=== PATIENT | female | born 1940 | race Caucasian/White ===

== ENCOUNTER 2016-06-25 13:52 | Emergency (ER) | payer MEDICARE ==
[~2016-06-25] VITALS: Ht 170.2 cm; Wt 112.2 kg
[~2016-06-25 13:52] MED LIST: B-CO1TAB5; D-10TAB2 PO; FISH100020 PO; GLIM2TAB PO; LEVA500T PO; LEVEMIR SC; LOSA50TA PO; VITA250L PO
[2016-06-25 13:56] VITALS: BP 154/70; PULSE 83; RESP 16; TEMP 98.3; O2SAT 96
[2016-06-25] MEDS ORDERED: GLIM2TAB PO (14:22)
[2016-06-25] MEDS ORDERED: LEVEMIR SQ (14:23)
[2016-06-25] MEDS ORDERED: LOSA50TA PO (14:23)
[2016-06-25] MEDS ORDERED: AMLO2.5T PO (14:24)
[2016-06-25] MEDS ORDERED: ATOR10TA15 PO (14:25)
[2016-06-25] MEDS ORDERED: ONDANSETRON HCL 4 MG/2 ML VIAL IVP ONE (14:30)
[2016-06-25] MEDS ORDERED: SODIUM CHLORIDE 0.9% FLUSH 5 ML FLUSH IVF PRN (14:30)
[2016-06-25] MEDS ORDERED: MORPHINE SULFATE 4 MG/ML INJ IV PUSH ONE (14:30)
--- NOTE | 2016-06-25 14:51 | PD ---
HPI Chief Complaint: Flank/Kidney Pain Time Seen by Provider: 14:27 Travel History International Travel<30 days: No Contact w/Intl Traveler<30days: No Traveled to known affect area: No History of Present Illness HPI 75-year-old female with history of pancreatitis, previous hysterectomy, cholecystectomy, diabetic, multiple medical issues, presents to the ER today because she has been having several days' history of left flank pain and left upper quadrant abdominal pain with nausea. She denies any vomiting, fevers, diarrhea, urinary symptoms, or any other symptoms. She states that her pain is currently an 8 out of 10 and constant, with no known exacerbating or alleviating factors. Patient states that the pain started on its own and has slowly been getting worse. Modifying Factors: None Associated Signs & Symptoms: Left flank and left upper quadrant abdominal pain Risk Factors: None PFSH Past Medical History Hx Anticoagulant Therapy: Yes (BABY ASA DAILY) Arthritis: Yes Blood Disorders: No Anxiety: Yes Depression: Yes Heart Rhythm Problems: No Cancer: No Cardiac Catheterization: No High Cholesterol: No Congestive Heart Failure: No Cerebrovascular Accident: No Diabetes: Yes Patient Takes Glucophage: No Diminished Hearing: No Endocrine: Yes GERD: No Genitourinary: No Headaches: No Hypertension: Yes Immune Disorder: No Kidney Stones: No Musculoskeletal: Yes Neurologic: No Respiratory: No Immunizations Current: No Migraines: Yes Myocardial Infarction: No Seizures: No Sleep Apnea: No Tetanus Vaccination: < 5 Years Influenza Vaccination: No PNEUMOCCOCAL Vaccine (Year): 1 ?: Not Menopausal: Yes : 3 Para: 2 Miscarriage: 1 Past Surgical History Appendectomy: Yes Cholecystectomy: Yes Coronary Artery Bypass Graft: No Gynecologic Surgery: Yes (C-SECT X 2 ) Hysterectomy: Yes Thoracic Surgery: No Tonsillectomy: Yes Other Surgery: Yes Family History Family Myocardial Infarction: Yes Social History Alcohol Use: No Tobacco Use: No Substance Use: No Allergies-Medications (Allergen,Severity, Reaction): Coded Allergies: Ampicillin (Verified Allergy, Severe, ITCHY HANDS, 06/25/16) Augmentin (Verified Allergy, Severe, SWELLING TO THROAT, 06/25/16) Molds and Smuts (Verified Allergy, Severe, BODY ACHES/CONGESTION, 06/25/16) Codeine (Verified Allergy, Mild, RASH, 06/25/16) Amoxicillin (Verified Allergy, Unknown, Itching hands, cough, 06/25/16) Uncoded Allergies: Epidural Steroid Injections (Allergy, Unknown, Causes ulcerations, 06/25/15) Reported Meds & Prescriptions Reported Meds & Active Scripts Active Reported Atorvastatin (Atorvastatin Calcium) 10 Mg Tab 10 Mg PO HS Amlodipine (Amlodipine Besylate) 2.5 Mg Tab 2.5 Mg PO DAILY Levemir Inj (Insulin Detemir) 1,000 unit/ 10 ML Vial 28 Units SQ HS Do not mix with any other Insulin. Losartan (Losartan Potassium) 50 Mg Tab 50 Mg PO DAILY Glimepiride 2 Mg Tab 2 Mg PO DAILY Take with breakfast or first main meal Review of Systems Except as stated in HPI: all other systems reviewed are Neg Physical Exam Narrative GENERAL: Well-nourished, well-developed elderly white female patient in mild distress. SKIN: Warm and dry. HEAD: Normocephalic. EYES: No scleral icterus. No injection or drainage. NECK: Supple, trachea midline. CARDIOVASCULAR: Regular rate and rhythm without murmurs, gallops, or rubs. RESPIRATORY: Breath sounds equal bilaterally. No accessory muscle use. GASTROINTESTINAL: Abdomen soft, left upper quadrant tenderness without guarding or rebound, nondistended. MUSCULOSKELETAL: No cyanosis, or edema. BACK: Nontender without obvious deformity. Left CVA tenderness. Data Data Last Documented VS Vital Signs Date Time Temp Pulse Resp B/P Pulse Ox O2 Delivery O2 Flow Rate FiO2 06/25/16 16:07 80 16 139/78 98 Room Air 06/25/16 13:56 98.3 Orders Urinalysis - C+S If Indicated (06/25/16 14:16) Complete Blood Count With Diff (06/25/16 14:27) Comprehensive Metabolic Panel (06/25/16 14:27) Lipase (06/25/16 14:27) Ct Abd/Pel W Iv Contrast(Rout) (06/25/16 14:27) Iv Access Insert/Monitor (06/25/16 14:27) Ecg Monitoring (06/25/16 14:27) Oximetry (06/25/16 14:27) Morphine Inj (Morphine Inj) (06/25/16 14:30) Ondansetron Inj (Zofran Inj) (06/25/16 14:30) Sodium Chloride 0.9% Flush (Ns Flush) (06/25/16 14:30) Iohexol 350 Inj (Omnipaque 350 Inj) (06/25/16 16:08) Labs Laboratory Tests Test 06/25/16 06/25/16 14:34 14:46 Urine Collection Type VOIDED Urine Color YELLOW Urine Turbidity CLEAR Urine pH 5.5 Urine Specific [place] 1.016 Urine Protein TRACE mg/dL Urine Glucose (UA) NEG mg/dL Urine Ketones NEG mg/dL Urine Occult Blood NEG Urine Nitrite NEG Urine Bilirubin NEG Urine Leukocyte Esterase TRACE Urine WBC 0-2 /hpf Urine Squamous Epithelial 0-5 /hpf Cells Microscopic Urinalysis Comment CULT NOT INDICATED White Blood Count 6.4 TH/MM3 Red Blood Count 4.75 MIL/MM3 Hemoglobin 13.5 GM/DL Hematocrit 39.8 % Mean Corpuscular Volume 83.8 FL Mean Corpuscular Hemoglobin 28.4 PG Mean Corpuscular Hemoglobin 33.8 % Concent Red Cell Distribution Width 12.4 % Platelet Count 229 TH/MM3 Mean Platelet Volume 8.4 FL Neutrophils (%) (Auto) 49.9 % Lymphocytes (%) (Auto) 38.7 % Monocytes (%) (Auto) 8.4 % Eosinophils (%) (Auto) 1.9 % Basophils (%) (Auto) 1.1 % Neutrophils # (Auto) 3.2 TH/MM3 Lymphocytes # (Auto) 2.5 TH/MM3 Monocytes # (Auto) 0.5 TH/MM3 Eosinophils # (Auto) 0.1 TH/MM3 Basophils # (Auto) 0.1 TH/MM3 CBC Comment DIFF FINAL Differential Comment Sodium Level 144 MEQ/L Potassium Level 4.0 MEQ/L Chloride Level 106 MEQ/L Carbon Dioxide Level 28.9 MEQ/L Anion Gap 9 MEQ/L Blood Urea Nitrogen 24 MG/DL Creatinine 1.10 MG/DL Estimat Glomerular Filtration 48 ML/MIN Rate Random Glucose 209 MG/DL Calcium Level 8.6 MG/DL Total Bilirubin 0.4 MG/DL Aspartate Amino Transf 14 U/L (AST/SGOT) Alanine Aminotransferase 14 U/L (ALT/SGPT) Alkaline Phosphatase 63 U/L Total Protein 6.9 GM/DL Albumin 3.4 GM/DL Lipase 542 U/L MDM Medical Decision Making Medical Screen Exam Complete: Yes Emergency Medical Condition: Yes Medical Record Reviewed: Yes Interpretation(s) Laboratory Tests Test 06/25/16 06/25/16 14:34 14:46 Urine Leukocyte Esterase TRACE (NEG) Monocytes (%) (Auto) 8.4 % (0.0-8.0) Blood Urea Nitrogen 24 MG/DL (7-18) Creatinine 1.10 MG/DL (0.50-1.00) Estimat Glomerular Filtration 48 ML/MIN (>89) Rate Random Glucose 209 MG/DL (74-106) Aspartate Amino Transf 14 U/L (15-37) (AST/SGOT) Lipase 542 U/L (73-393) Differential Diagnosis Left upper quadrant abdominal pain and left flank painsrenal colic versus pyelonephritis versus gastritis versus pancreatitis versus gastroenteritis Narrative Course Lab work shows pancreatitis. CAT scan shows a cystic structure at the hip the pancreas questionable for pseudocyst, however this appears to be unchanged from previous CAT scan. There was no acute issues identified on CAT scan. She has some calcification within her pancreas likely an indication of underlying previous pancreatitis. She is not vomiting in the ER. She was given IV fluids , pain medication and antiemetics in the ER. And considering her age, and symptoms, I have discussed the patient with Dr. Rosario, hospitalist on service, for observation admission. However, per discussion, Dr. Rosario feels that the patient can be managed as an outpatient at this time. She should return for any worsening in pain, vomiting, fevers, and as needed. Follow-up closely with primary care physician. The plan was discussed with her and she states understanding. Diagnosis Primary Impression: IDIOPATHIC ACUTE PANCREATITIS WITHOUT NECROSIS OR INFECTION Med/Other Pt SpecificInfo: Prescription(s) given Scripts Ondansetron Odt (Zofran Odt)4 Mg Tab4 Mg SL Q6HR PRN (Nausea/Vomiting) #7 TAB Ref 0 Prov:Watson Garcia MD 06/25/16 Hydrocodone-Acetaminophen (Lortab)5-325 Mg Tab1-2 Tab PO Q6H PRN (PAIN) #20 TAB Ref 0 Prov:Watson Garcia MD 06/25/16 Disposition: 01 DISCHARGE HOME Condition: Stable Watson Garcia MD Jun 25, 2016 14:50
[2016-06-25 14:55] VITALS: O2SAT 100
[2016-06-25 14:58] LABS: AUTOMATED NEUTROPHIL # 3.2 TH/MM3 (1.8-7.7); BASOPHIL # 0.1 TH/MM3 (0-0.2); BASOPHIL % 1.1 % (0.0-2.0); EOSINOPHIL # 0.1 TH/MM3 (0-0.4); EOSINOPHIL % 1.9 % (0.0-4.0); HEMATOCRIT 39.8 % (35.0-46.0); HEMO FLAGS DIFF FINAL; LYMPH % 38.7 % (9.0-44.0); LYMPHOCYTE # 2.5 TH/MM3 (1.0-4.8); MEAN CELL VOLUME 83.8 FL (80.0-100.0); MEAN CORPUSCULAR HEMOGLOBIN 28.4 PG (27.0-34.0); MEAN CORPUSCULAR HGB CONC 33.8 % (32.0-36.0); MONO % 8.4 % (0.0-8.0); NEUT % 49.9 % (16.0-70.0); PLATELET COUNT 229 TH/MM3 (150-450); RED BLOOD COUNT 4.75 MIL/MM3 (4.00-5.30); RED CELL DISTRIBUTION WIDTH 12.4 % (11.6-17.2); WHITE BLOOD COUNT 6.4 TH/MM3 (4.0-11.0)
[2016-06-25 14:59] LABS: BLOOD, URINE NEG (NEG); GLUCOSE,URINE NEG (NEG); KETONE, URINE NEG (NEG); NITRITE,URINE NEG (NEG); PH, URINE 5.5 (5.0-8.5)
[2016-06-25 15:08] LABS: CHLORIDE 106 MEQ/L (98-107); SODIUM (NA) 144 MEQ/L (136-145)
[2016-06-25 15:12] LABS: ANION GAP 9 MEQ/L (5-15); BICARBONATE 28.9 MEQ/L (21.0-32.0); BLOOD UREA NITROGEN 24 MG/DL (7-18)
[2016-06-25 15:15] LABS: ALT (GPT) 14 U/L (10-53); AST (GOT) 14 U/L (15-37); GLOMERULAR FILTRATION RATE 48 ML/MIN (>89)
[2016-06-25 15:16] LABS: TOTAL BILIRUBIN ADULT 0.4 MG/DL (0.2-1.0)
[2016-06-25 15:18] LABS: ALKALINE PHOSPHATASE 63 U/L (45-117)
[2016-06-25 15:18] LABS: METHOD OF COLLECTION VOIDED; URINE COLOR YELLOW (YELLW/STRAW)
[2016-06-25 15:19] LABS: COMMENT (UR) CULT NOT INDICATED; CULTURE IF INDICATED CULT NOT INDICATED; SQUAMOUS EPITHELIAL CELL URINE 0-5 /hpf (0-5); WBC, URINE 0-2 /hpf (0-5)
[2016-06-25] MEDS ORDERED: IOHEXOL 350 MG/ML 10 ML VIAL (for RAD DIAG) IV ONE (15:35)
[2016-06-25 16:07] VITALS: BP 139/78; PULSE 80; RESP 16; O2SAT 98
[2016-06-25] MEDS ORDERED: IOHEXOL 350 MG/ML 50 ML BTL (for RAD DIAG) IV ONE (16:08)
--- NOTE | 2016-06-25 16:58 | RADHPO ---
EXAM DATE/TIME: 06/25/2016 15:35 [facility] COMPARISON: CT ABDOMEN & PELVIS W CONTRAST, June 10, 2012, 16:05. INDICATIONS : Left sided flank pain. IV CONTRAST: 95 cc Omnipaque 350 (iohexol) IV ORAL CONTRAST: No oral contrast ingested. RADIATION DOSE: 22.03 CTDIvol (mGy) MEDICAL HISTORY : Hypertension. Pancreatitis. Diabetes. SURGICAL HISTORY : Appendectomy. Cholecystectomy. Hysterectomy. ENCOUNTER: Initial ACUITY: 3 days PAIN SCALE: 7/10 LOCATION: Left flank TECHNIQUE: Volumetric scanning of the abdomen and pelvis was performed. Using automated exposure control and ad justment of the mA and/or kV according to patient size, radiation dose was kept as low as reasonably achievable to obtain optimal diagnostic quality images. FINDINGS: There are two stable low density lesions within the liver parenchyma, one in the right lobe and one i n the left which are benign and unchanged for over four years. No new hepatic lesions are noted. No biliary ductal dilatation is noted. The cystic structure within the head of the pancreas measuring 3 .4 x 2.1 cm is stable again for over four years. There are calcifications within the region of the h ead/uncinate process of the pancreas which have increased compared to the previous examination. The main pancreatic duct is nondilated. The spleen is normal. Uncomplicated colonic diverticulosis is n oted. There is a midline ventral abdominal wall hernia containing some fluid and peritoneal fat but n o bowel loop. There is a small 1.7 x 1.1 cm right adrenal nodule consistent with adrenal adenoma. T he left adrenal gland is unremarkable. Stable bilateral renal cysts are noted. There is no hydroneph rosis. The abdominal aorta is calcified but is not aneurysmally dilated. The inferior vena cava is normal. There is no paraaortic, retroperitoneal or mesenteric lymphadenopathy. The urinary bladder is unremarkable. No ascites is noted. Degenerative changes and multilevel spinal stenoses are noted within the lumbar spine. Scoliosis of the lumbar spine is noted. CONCLUSION: 1. No significant change compared to 06/10/2012. 2. No acute intraabdominal process. 3. Stable cystic area within the head of the pancreas which measures 3.4 x 2.1 cm. 4. Stable right adrenal nodule measuring 1.7 x 1.1 cm consistent with probable adrenal adenoma. 5. Stable low density lesions within the liver consistent with benign lesions. 6. Stable ventral abdominal wall hernia containing fat and fluid but no bowel. 7. Uncomplicated colonic diverticulosis. 8. Slight increase in the parenchymal calcifications within the head of the pancreas. 9. Multiple bilateral renal cysts. 10. Degenerative changes, multilevel spinal stenoses and scoliosis of the lumbar spine. Miguel Angel Machuca MD on June 25, 2016 at 16:41 Board Certified Radiologist. This report was verified electronically.
[2016-06-25] MEDS ORDERED: HYDR-3533 PO (17:35)
[2016-06-25] MEDS ORDERED: ZOFR4TAB3 SL (17:35)
[2016-06-25 18:06] VITALS: BP 144/62
== END 2016-06-25 18:08 | disposition home or self-care (01) ==
LOC: PHED 13:52
DX: K85.00 Idiopathic acute pancreatitis without necrosis or infection (principal); E11.9 Type 2 diabetes mellitus without complications; I10 Essential (primary) hypertension; Z79.01 Long term (current) use of anticoagulants
CPT/HCPCS: 74177; 80053; 81001; 83690; 85025; 96374; 96375; 99284; J2270; J2405; Q9967

== ENCOUNTER 2017-09-19 16:33 | Emergency (ER) | payer MEDICARE ==
[~2017-09-19] VITALS: Ht 165.1 cm; Wt 109.0 kg
[~2017-09-19 16:33] MED LIST changes: +AMLO2.5T PO; +ATOR10TA15 PO; -B-CO1TAB5; -D-10TAB2 PO; -FISH100020 PO; +HYDR-3533 PO; -LEVA500T PO; -LEVEMIR SC; +LEVEMIR SQ; -VITA250L PO; +ZOFR4TAB3 SL
[2017-09-19 16:36] VITALS: BP 200/97; PULSE 94; RESP 19; TEMP 98.2; O2SAT 98
[2017-09-19] MEDS ORDERED: SODIUM CHLOR 0.9% 1000 ML INJ 1,000 ML IV ONE (17:45)
[2017-09-19] MEDS ORDERED: ONDANSETRON HCL 4 MG/2 ML VIAL IV PUSH ONE (17:45)
[2017-09-19] MEDS ORDERED: MORPHINE SULFATE 2 MG/ML SYRINGE IV PUSH ONE (17:45)
[2017-09-19 18:09] LABS: AUTOMATED NEUTROPHIL # 3.9 TH/MM3 (1.8-7.7); BASOPHIL % 0.6 % (0.0-2.0); EOSINOPHIL # 0.1 TH/MM3 (0-0.4); EOSINOPHIL % 1.5 % (0.0-4.0); HEMATOCRIT 44.6 % (35.0-46.0); HEMOGLOBIN 15.1 GM/DL (11.6-15.3); LYMPH % 42.8 % (9.0-44.0); LYMPHOCYTE # 3.5 TH/MM3 (1.0-4.8); MEAN CELL VOLUME 86.6 FL (80.0-100.0); MEAN CORPUSCULAR HEMOGLOBIN 29.3 PG (27.0-34.0); MEAN CORPUSCULAR HGB CONC 33.8 % (32.0-36.0); MEAN PLATELET VOLUME 8.8 FL (7.0-11.0); MONO % 8.7 % (0.0-8.0); MONOCYTE # 0.7 TH/MM3 (0-0.9); NEUT % 46.4 % (16.0-70.0); PLATELET COUNT 264 TH/MM3 (150-450); RED BLOOD COUNT 5.15 MIL/MM3 (4.00-5.30); RED CELL DISTRIBUTION WIDTH 13.3 % (11.6-17.2); WHITE BLOOD COUNT 8.3 TH/MM3 (4.0-11.0)
[2017-09-19] MEDS ORDERED: MORPHINE SULFATE 4 MG/ML INJ IV ONE (18:15)
[2017-09-19 18:36] LABS: ALBUMIN 3.9 GM/DL (3.4-5.0); ALT (GPT) 17 U/L (10-53); AST (GOT) 35 U/L (15-37); BICARBONATE 26.7 MEQ/L (21.0-32.0); CALCIUM 9.4 MG/DL (8.5-10.1); CHLORIDE 104 MEQ/L (98-107); GLUCOSE,RANDOM 166 MG/DL (74-106); SODIUM (NA) 138 MEQ/L (136-145)
[2017-09-19 18:38] LABS: ALKALINE PHOSPHATASE 76 U/L (45-117); TOTAL BILIRUBIN ADULT 0.5 MG/DL (0.2-1.0); TOTAL PROTEIN 7.9 GM/DL (6.4-8.2)
[2017-09-19 19:04] LABS: BLOOD UREA NITROGEN 23 MG/DL (7-18); CREATININE 1.25 MG/DL (0.50-1.00); GLOMERULAR FILTRATION RATE 42 ML/MIN (>89)
[2017-09-19] MEDS ORDERED: D3 U5000 (19:04)
[2017-09-19] MEDS ORDERED: CYAN1TAB24 (19:04)
[2017-09-19] MEDS ORDERED: ASPI-516 CHEW (19:04)
[2017-09-19] MEDS ORDERED: VITA150T (19:04)
[2017-09-19] MEDS ORDERED: COEN400C (19:04)
[2017-09-19] MEDS ORDERED: AREDS2 (19:04)
[2017-09-19] MEDS ORDERED: BIOT10TA PO (19:04)
[2017-09-19] MEDS ORDERED: CENTCHW4 CHEW (19:04)
[2017-09-19] MEDS ORDERED: CHOLTAB5 (19:04)
--- NOTE | 2017-09-19 19:14 | PD ---
HPI Chief Complaint: Abdominal Pain Time Seen by Provider: 17:23 Travel History International Travel<30 days: No Contact w/Intl Traveler<30days: No Traveled to known affect area: No History of Present Illness HPI This is a 76-year-old female who has a history of chronic recurrent pancreatitis who presents to the emergency department with upper abdominal pain , constant, moderate severity with no nausea vomiting, fevers or chills. She is a patient of Dr. Ratliff. Her symptoms of been present for 2 weeks. She has been trying to manage this at home and has been fasting intermittently but her pain persists she is having trouble keeping anything down due to pain. Dr. Wallace urged her to come to the emergency department as her pains been worsening and she has not been improving despite attempts at home care. PFSH Past Medical History Hx Anticoagulant Therapy: Yes (BABY ASA DAILY) Arthritis: Yes Blood Disorders: No Anxiety: Yes Depression: Yes Heart Rhythm Problems: No Cancer: No Cardiac Catheterization: No High Cholesterol: No Congestive Heart Failure: No Cerebrovascular Accident: No Diabetes: Yes Patient Takes Glucophage: No Diminished Hearing: No Endocrine: Yes GERD: No Genitourinary: No Headaches: No Hypertension: Yes Immune Disorder: No Kidney Stones: No Musculoskeletal: Yes Neurologic: No Respiratory: No Immunizations Current: No Migraines: Yes Myocardial Infarction: No Pancreatitis: Yes Seizures: No Sleep Apnea: No PNEUMOCCOCAL Vaccine (Year): 1 Menopausal: Yes : 3 Para: 2 Miscarriage: 1 Past Surgical History Appendectomy: Yes Cholecystectomy: Yes Coronary Artery Bypass Graft: No Gynecologic Surgery: Yes (C-SECT X 2 ) Hysterectomy: Yes Thoracic Surgery: No Tonsillectomy: Yes Other Surgery: Yes Family History Family Myocardial Infarction: Yes Social History Alcohol Use: No Tobacco Use: No (QUIT 10 YEARS AGO) Substance Use: No Allergies-Medications (Allergen,Severity, Reaction): Coded Allergies: amoxicillin (Unverified Allergy, Severe, SWELLING TO THROAT, 09/19/17) ampicillin (Unverified Allergy, Severe, ITCHY HANDS, 09/19/17) clavulanic acid (Unverified Allergy, Severe, SWELLING TO THROAT, 09/19/17) mold (Unverified Allergy, Severe, BODY ACHES/CONGESTION, 09/19/17) codeine (Unverified Allergy, Mild, RASH, 09/19/17) Uncoded Allergies: Epidural Steroid Injections (Allergy, Unknown, Causes ulcerations, 06/25/15) Reported Meds & Prescriptions Reported Meds & Active Scripts Active Reported Cholestoff (Plant Sterols and Stanols) 450 Mg Tab Biotin 10 Mg Tab 200 Mg PO DAILY Coq-10 (Coenzyme Q10 (Ubidecarenone)) 400 Mg Cap 200 Mg D3 Ultra Strength (Cholecalciferol) 5,000 Unit Cap 2,000 Units DAILY B12 (Cyanocobalamin) 1,000 Mcg Tab Centrum (Multiple Vitamins W/ Minerals) 1 Chew 1 Tab CHEW DAILY [Areds2] Super B Complex (Vitamin B Complex Vit C No.4) 150 Mg Tablet Aspirin 81 Mg Chew 81 Mg CHEW DAILY Levemir Inj (Insulin Detemir) 1,000 unit/ 10 ML Vial 28 Units SQ HS Do not mix with any other Insulin. Losartan (Losartan Potassium) 50 Mg Tab 50 Mg PO DAILY Glimepiride 2 Mg Tab 2 Mg PO DAILY Take with breakfast or first main meal Review of Systems Except as stated in HPI: all other systems reviewed are Neg Physical Exam Narrative GENERAL:Well appearing, no acute distress SKIN: Focused skin assessment warm and dry. HEAD: Atraumatic. Normocephalic. EYES: Pupils equal and round. No injection or drainage. ENT: Moist mucous membranes NECK: Trachea midline. CARDIOVASCULAR: Regular rate and rhythm. No murmur appreciated. RESPIRATORY: Clear to auscultation. Breath sounds equal bilaterally. GASTROINTESTINAL: Abdomen soft, diffusely tender to palpation worse in the left upper quadrant and left lower quadrant MUSCULOSKELETAL: No obvious deformities. NEUROLOGICAL: Awake and alert. No obvious cranial nerve deficits. Moving all extremities. PSYCHIATRIC: Appropriate mood and affect; insight and judgment normal. Data Data Last Documented VS Vital Signs Date Time Temp Pulse Resp B/P (MAP) Pulse Ox O2 Delivery O2 Flow Rate FiO2 09/19/17 17:25 18 09/19/17 16:36 98.2 94 200/97 (131) 98 Orders Orders Complete Blood Count With Diff (09/19/17 17:37) Comprehensive Metabolic Panel (09/19/17 17:37) ^ Insert Iv (09/19/17 17:37) Lipase (09/19/17 17:37) Ondansetron Inj (Zofran Inj) (09/19/17 17:45) Sodium Chlor 0.9% 1000 Ml Inj (Ns 1000 M (09/19/17 17:45) Morphine Inj (Morphine Inj) (09/19/17 18:15) Labs Laboratory Tests Test 09/19/17 17:44 White Blood Count 8.3 TH/MM3 Red Blood Count 5.15 MIL/MM3 Hemoglobin 15.1 GM/DL Hematocrit 44.6 % Mean Corpuscular Volume 86.6 FL Mean Corpuscular Hemoglobin 29.3 PG Mean Corpuscular Hemoglobin Concent 33.8 % Red Cell Distribution Width 13.3 % Platelet Count 264 TH/MM3 Mean Platelet Volume 8.8 FL Neutrophils (%) (Auto) 46.4 % Lymphocytes (%) (Auto) 42.8 % Monocytes (%) (Auto) 8.7 % Eosinophils (%) (Auto) 1.5 % Basophils (%) (Auto) 0.6 % Neutrophils # (Auto) 3.9 TH/MM3 Lymphocytes # (Auto) 3.5 TH/MM3 Monocytes # (Auto) 0.7 TH/MM3 Eosinophils # (Auto) 0.1 TH/MM3 Basophils # (Auto) 0.0 TH/MM3 CBC Comment DIFF FINAL Differential Comment Blood Urea Nitrogen 23 MG/DL Creatinine 1.25 MG/DL Random Glucose 166 MG/DL Total Protein 7.9 GM/DL Albumin 3.9 GM/DL Calcium Level 9.4 MG/DL Alkaline Phosphatase 76 U/L Aspartate Amino Transf (AST/SGOT) 35 U/L Alanine Aminotransferase (ALT/SGPT) 17 U/L Total Bilirubin 0.5 MG/DL Sodium Level 138 MEQ/L Potassium Level 4.3 MEQ/L Chloride Level 104 MEQ/L Carbon Dioxide Level 26.7 MEQ/L Anion Gap 7 MEQ/L Estimat Glomerular Filtration Rate 42 ML/MIN Lipase 123 U/L [facility] Medical Decision Making Medical Screen Exam Complete: Yes Emergency Medical Condition: Yes Interpretation(s) Labs are all reassuring Differential Diagnosis Acute pancreatitis, chronic pancreatitis, peptic ulcer disease, gastritis, diverticulitis Narrative Course This is a 76-year-old female who presents to the emergency department with intractable abdominal pain.. Labs are all reassuring and vital signs are unremarkable. CT abdomen pelvis will be obtained. If reassuring if think patient can be discharged to follow-up with Dr. Wallace that she appears well hydrated, and is quite comfortable on exam. Isamar Valle MD September 19, 2017 19:14
[2017-09-19 19:25] VITALS: BP 146/67; PULSE 82; RESP 17; O2SAT 96
--- NOTE | 2017-09-19 19:28 | PD ---
Data Data Last Documented VS Vital Signs Date Time Temp Pulse Resp B/P (MAP) Pulse Ox O2 Delivery O2 Flow Rate FiO2 09/19/17 20:43 09/19/17 19:25 82 17 96 Room Air 09/19/17 16:36 98.2 Orders Orders Complete Blood Count With Diff (09/19/17 17:37) Comprehensive Metabolic Panel (09/19/17 17:37) ^ Insert Iv (09/19/17 17:37) Lipase (09/19/17 17:37) Ondansetron Inj (Zofran Inj) (09/19/17 17:45) Sodium Chlor 0.9% 1000 Ml Inj (Ns 1000 M (09/19/17 17:45) Morphine Inj (Morphine Inj) (09/19/17 18:15) Ct Abd/Pel W Iv Contrast(Rout) (09/19/17 ) Iohexol 350 Inj (Omnipaque 350 Inj) (09/19/17 19:42) Ed Discharge Order (09/19/17 20:37) Labs Laboratory Tests Test 09/19/17 17:44 White Blood Count 8.3 TH/MM3 Red Blood Count 5.15 MIL/MM3 Hemoglobin 15.1 GM/DL Hematocrit 44.6 % Mean Corpuscular Volume 86.6 FL Mean Corpuscular Hemoglobin 29.3 PG Mean Corpuscular Hemoglobin Concent 33.8 % Red Cell Distribution Width 13.3 % Platelet Count 264 TH/MM3 Mean Platelet Volume 8.8 FL Neutrophils (%) (Auto) 46.4 % Lymphocytes (%) (Auto) 42.8 % Monocytes (%) (Auto) 8.7 % Eosinophils (%) (Auto) 1.5 % Basophils (%) (Auto) 0.6 % Neutrophils # (Auto) 3.9 TH/MM3 Lymphocytes # (Auto) 3.5 TH/MM3 Monocytes # (Auto) 0.7 TH/MM3 Eosinophils # (Auto) 0.1 TH/MM3 Basophils # (Auto) 0.0 TH/MM3 CBC Comment DIFF FINAL Differential Comment Blood Urea Nitrogen 23 MG/DL Creatinine 1.25 MG/DL Random Glucose 166 MG/DL Total Protein 7.9 GM/DL Albumin 3.9 GM/DL Calcium Level 9.4 MG/DL Alkaline Phosphatase 76 U/L Aspartate Amino Transf (AST/SGOT) 35 U/L Alanine Aminotransferase (ALT/SGPT) 17 U/L Total Bilirubin 0.5 MG/DL Sodium Level 138 MEQ/L Potassium Level 4.3 MEQ/L Chloride Level 104 MEQ/L Carbon Dioxide Level 26.7 MEQ/L Anion Gap 7 MEQ/L Estimat Glomerular Filtration Rate 42 ML/MIN Lipase 123 U/L [facility] Medical Record Reviewed: Yes Supervised Visit with TODD: No Narrative Course During the course of the patient's emergency department visit, the patient's history, examination, and differential diagnosis were reviewed with the patient. The patient was placed on a monitoring tech with oximetry and frequent blood pressure monitoring. The patient had IV access obtained and blood work sent for analysis. The patient's case was checked out to me by Dr. Valle. Please see her complete history and physical. The patient's case was checked out to me at the conclusion of her shift. The patient presented with abdominal pain. The patient has a history of idiopathic pancreatitis. The patient is followed by Dr. Wallace for her primary care. The patient is also followed by a manager assisted living out of the [facility]. The patient was initially provided morphine for pain, Zofran for nausea, normal saline at 1 L IV fluid bolus. The patient's laboratory studies were reviewed and remarkable for a white count of 8.3, hemoglobin 15.1, platelets 264 with 8.7 monocytes, CMP is remarkable for a BUN of 23, creatinine of 1.25 which is slightly worse compared to the patient's last BUN and creatinine at 24 and 1.10 respectively. This should be improved with hydration. Lipase is within normal limits 123. Glucose is 166. Radiology studies were reviewed and remarkable for Last Impressions Abdomen/Pelvis CT 09/19/17 0000 Signed Impressions: Service Date/Time: Tuesday, September 19, 2017 19:37 - CONCLUSION: 1. No acute findings compare June 2016. 2. Stable changes of ventral hernia, small hepatic and renal cysts, diverticulosis and cystic area with eccentric calcifications in the pancreatic head. Med Perkins MD As the patient's laboratory studies show no acute findings, CT scan of the abdomen and pelvis also shows no acute findings and abdominal exam is benign, the patient can be managed as an outpatient. The patient reports that she has a manager assisted living at the [facility], however she prefers to follow-up with someone locally. She is given the name of the manager assisted living operational intelligence officer, Dr. Calixto, for follow-up. The patient is given a copy of her CT scan findings. The patient is resting comfortably and feels better, is alert and in no distress. The patient's results and examination findings were discussed with the patient. The repeat examination is unremarkable and benign. The history, exam, diagnostic testing, and current condition do not suggest any significant pathology to warrant further testing, continued ED treatment, admission, or surgical evaluation at this point. The vital signs have been stable. The patient does not have uncontrollable pain, intractable vomiting, or other significant symptoms. The patient's condition is stable and appropriate for discharge. The patient will pursue further outpatient evaluation with a primary care physician or other designated or consulting physician as indicated in the discharge instructions. The patient expressed understanding and was agreeable with this plan. Diagnosis Primary Impression: Abdominal pain Qualified Codes: R10.9 - Unspecified abdominal pain Referrals: Maddison Wallace MD 2 days Level Vial Curvature Gauger 2 days Patient Instructions: Abdominal Pain (ED), General Instructions Additional Instruction: Follow-up with your primary care physician and manager assisted living regarding this emergency department visit. The patient is instructed that if she develops any new or worsening signs or symptoms, she should report back immediately to the emergency department. Disposition: 01 DISCHARGE HOME Condition: Stable Annmarie Shultz MD September 19, 2017 19:28
[2017-09-19] MEDS ORDERED: IOHEXOL 350 MG/ML 10 ML VIAL (for RAD DIAG) IVCONTRAST ONE (19:42)
--- NOTE | 2017-09-19 20:04 | RADRPT ---
EXAM DATE/TIME: 09/19/2017 19:37 [place] COMPARISON: No previous studies available for comparison. INDICATIONS : Abdomen pain. IV CONTRAST: 100 cc Omnipaque 350 (iohexol) IV ORAL CONTRAST: No oral contrast ingested. RADIATION DOSE: 21.67 CTDIvol (mGy) MEDICAL HISTORY : Hypertension. Pancreatitis. SURGICAL HISTORY : Appendectomy. Cholecystectomy.Hysterectomy. ENCOUNTER: Initial ACUITY: 1 day PAIN SCALE: 5/10 LOCATION: Bilateral abdomen TECHNIQUE: Volumetric scanning of the abdomen and pelvis was performed. Using automated exposure control and ad justment of the mA and/or kV according to patient size, radiation dose was kept as low as reasonably achievable to obtain optimal diagnostic quality images. DICOM format image data is available electro nically for review and comparison. FINDINGS: Lung bases are clear. No acute findings in liver, spleen, or adrenals, except for small stable right adrenal nodule. Stable cystic changes with eccentric calcification in the pancreatic head measuring u p to about 3 cm in diameter, compared with every 2017. Multiple small hepatic and bilateral renal cys ts. Small ventral hernia containing fluid and fat with no significant change from June 2016. No pelvic masses or free fluid. Colonic diverticula without evidence for diverticulitis. 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 CONCLUSION: 1. No acute findings compare June 2016. 2. Stable changes of ventral hernia, small hepatic and renal cysts, diverticulosis and cystic area wi th eccentric calcifications in the pancreatic head. Med Perkins MD on September 19, 2017 at 19:53 Board Certified Radiologist. This report was verified electronically.
== END 2017-09-19 21:00 | disposition home or self-care (01) ==
LOC: NEPE 16:33
DX: R10.10 Upper abdominal pain, unspecified (principal); N28.1 Cyst of kidney, acquired; K43.9 Ventral hernia without obstruction or gangrene; I10 Essential (primary) hypertension; E11.9 Type 2 diabetes mellitus without complications; F32.9 Major depressive disorder, single episode, unspecified; Z79.84 Long term (current) use of oral hypoglycemic drugs; Z79.4 Long term (current) use of insulin; Z79.82 Long term (current) use of aspirin
CPT/HCPCS: 74177; 80053; 83690; 85025; 96374; 96375; 99284; J2270; J2405; J7030; Q9967